=== PATIENT | female | born 1990 | race Two or more races ===

== ENCOUNTER 2018-02-03 09:49 | Emergency (ER) | payer OTHER ==
--- NOTE | 2018-02-03 10:14 | EDPHY ---
H & P Time Seen by Provider: 02/03/18 10:05 HPI/ROS: CHIEF COMPLAINT: Right calf pain post long road trip HISTORY OF PRESENT ILLNESS: 27-year-old female otherwise healthy complaining of 4 days of right calf pain after a long driving car trip. The pain is keeping her awake at night. No trauma or fall. No history of thromboembolic disorder. No chest pain. No dyspnea. No back or flank pain. No headache. No abdominal pain. No nausea or vomiting. PRIMARY CARE PROVIDER: None REVIEW OF SYSTEMS: A ten point review of systems was performed and is negative with the exception of the items mentioned in the HPI PAST MEDICAL & SURGICAL HISTORY: No pertinent medical or surgical history SOCIAL HISTORY:Nonsmoker PHYSICAL EXAM (Prior to examination, patient consented to physical exam, hands were washed and my usual and customary physical exam procedures followed) 1) GENERAL: Well-developed, well-nourished, alert and oriented. Appears to be in no acute distress. 2) HEAD: Normocephalic, atraumatic 3) HEENT: Pupils equal, round, reactive to light bilaterally. Sclera anicteric. Nasopharynx, oropharynx, clear, no lesions. Ears bilaterally with normal tympanic membranes. 4) NECK: Full range of motion, no meningeal signs. 5) LUNGS: Clear auscultation bilaterally, no wheezes, no rhonchi, no retractions. 6) HEART: Regular rate and rhythm, no murmur, no heave, no gallop. 7) ABDOMEN: No guarding, no rebound, no focal tenderness, negative McBurney's, negative Rodas's, negative Rovsing's, negative peritoneal sign, 8) MUSCULOSKELETAL: Right lower extremity: Tender to palpation right posterior calf. No discoloration. No palpable cord. Soft compartments. DP PT pulses present and brisk. 9) BACK: No CVA tenderness, no midline vertebral tenderness, no fluctuance, no step-off, no obvious trauma, no visual or palpable abnormality. 10) SKIN: No rash, no petechiae. 11) Psychiatric: Patient is oriented X 3, there is no agitation. DIFFERENTIAL DIAGNOSIS: In no particular order including but limited to muscle strain, compartment syndrome, DVT, SVT Smoking Status: Never smoked Constitutional: Initial Vital Signs Temperature (C) 36.7 C 02/03/18 09:55 Heart Rate 83 02/03/18 09:55 Respiratory Rate 16 02/03/18 09:55 Blood Pressure 129/81 H 02/03/18 09:55 O2 Sat (%) 98 02/03/18 09:55 O2 Delivery Mode Room Air Allergies/Adverse Reactions: lactose Allergy (Verified 02/03/18 09:54) Home Medications: Medication Instructions Recorded Nuva Ring 02/03/18 Rivaroxaban [Xarelto 15mg (*)] 15 mg PO BID #42 tab 02/03/18 MDM/Departure - MDM Imaging Results: Images reviewed by myself ED Course/Re-evaluation: Patient was re-evaluated with serial examinations. she remains neurovascularly intact. I discussed the case with secondary supervising physician Dr. Yumiko Russo in the ER. The patient in [place] Dr. Russo discussed the location of her DVT, namely a distal calf pain. We discussed indications, benefits, risks of treatment with anticoagulant. Of concerned this patient is the significant degree of her pain which she states kept her awake last night. For this reason I think that anticoagulant therapy is appropriate. In addition she does not have a PCP - Depart Disposition: Home, Routine, Self-Care Clinical Impression: Calf DVT (deep venous thrombosis) Qualifiers: Chronicity: acute Laterality: right Qualified Code(s): I82.4Z1 - Acute embolism and thrombosis of unspecified deep veins of right distal lower extremity Condition: Good Instructions: Deep Vein Thrombosis (ED) Additional Instructions: Return to the ER if you develop worsening pain, if you develop shortness of breath headache or any other symptoms that concern you. Prescriptions: Rivaroxaban [Xarelto 15mg (*)] 15 mg PO BID #42 tab Referrals: Soha Noyola MD [Medical Doctor] - 1-2 days without fail
[2018-02-03 11:36] LABS: PLATELET COUNT 268 10^3/uL (150-400)
[2018-02-03 11:57] VITALS: BP 120/75
== END 2018-02-03 11:57 | disposition home or self-care (01) ==
DX: I82.4Z1 Acute embolism and thrombosis of unspecified deep veins of right distal lower extremity (principal); Z79.01 Long term (current) use of anticoagulants